=== PATIENT | male | born 1965 | race Caucasian/White ===

== ENCOUNTER 2020-03-20 11:45 | Outpatient (CLI) | payer BC ==
[2020-03-20] MEDS ORDERED: LIDOCAINE 1%, 10ML ONE (13:46)
[2020-03-25] MEDS ORDERED: LIDOCAINE 1%, 10ML ONE (13:46)
== END 2020-03-20 23:59 | disposition home or self-care (01) ==
LOC: RAD 11:45
PROVIDERS: ATTEND Family Medicine
DX: K70.31 Alcoholic cirrhosis of liver with ascites (principal)
CPT/HCPCS: 49083; 82042; 84157; 87070; 87205; 89051; J3490

== ENCOUNTER 2020-06-26 07:35 | Emergency (ER) | payer BC ==
[~2020-06-26] VITALS: Ht 172.7 cm; Wt 73.4 kg
[2020-06-26 07:39] VITALS: BP 162/95
--- NOTE | 2020-06-26 08:27 | NUR ---
Patient/Caregiver given discharge instructions and they have confirmed that they understand the instructions. Patient ambulatory with steady gait.
== END 2020-06-26 08:33 | disposition home or self-care (01) ==
LOC: ED 08:10
DX: L20.84 Intrinsic (allergic) eczema (principal)
CPT/HCPCS: 99283; Q0177